=== PATIENT | female | born 1935 | race Caucasian/White ===

== ENCOUNTER 2017-08-26 12:34 | Emergency (ER) | payer MEDICARE, OTHER ==
[~2017-08-26] VITALS: Ht 165.1 cm; Wt 79.4 kg
[~2017-08-26 12:34] MED LIST: ACET325 PO; ALBU90OI INH; ASPI325; ASPI325 PO; ASPI81CH PO; BUDE6HFA; BUDE6HFA INH; BUPR150ER PO; BUPR150T2; CEPH500 PO; CHOL10002 PO; CODACE30; CONEST.625; CYCL10 PO; FENT25TP TOP; GABA300 PO; HYDACE5 PO; HYDR1TAB94 PO; IRON PO; Inderal40 MG; LACT10SY PO; LANS30EC; Lopressor 25 mg25 MG PO; META800 PO; METO50ER PO; MISO200; MYRBETRIQ25 MG PO; Mucinex600 MG PO; NAPR220 PO; NITR.4SL SL; NITR.6SL SL; Naprosyn500 MG PO; Norco 10-325 T1 EACH PO; Norco 5-325 Ta1 EACH PO; ONDA4 PO; OXYACE5T PO; OXYB5; OXYB5 PO; OXYC5 PO; PANT40 PO; PARO20 PO; PRAV20 PO; PREG75 PO; PROP60; Percocet 5-3251 EACH PO; Pravachol80 MG PO; Prednisone20 MG PO; RANO500T PO; ROPI.25 PO; RXHYD5325 PO; SERT100 PO; SOLI5 PO; SUCR1SU PO; SULTRISS PO; Verotin-Gr Cap1 EACH PO; Zithromax250 MG PO; Zofran Odt4 MG SL; [UNRECOGNIZED DRUG - OTHER] MC
[2017-08-26] MEDS ORDERED: TYLECOD3 PO (14:54)
== END 2017-08-26 15:40 | disposition home or self-care (01) ==
LOC: ER 12:34
DX: M25.561 Pain in right knee (principal); Z88.8 Allergy status to other drugs, medicaments and biological substances; Z87.891 Personal history of nicotine dependence; Z88.5 Allergy status to narcotic agent; Z79.899 Other long term (current) drug therapy; Z79.82 Long term (current) use of aspirin; J44.9 Chronic obstructive pulmonary disease, unspecified
CPT/HCPCS: 73564; 99283

== ENCOUNTER 2017-11-27 10:52 | Day surgery (SDC) | payer MEDICARE, OTHER ==
[~2017-11-27] VITALS: Ht 165.1 cm; Wt 79.5 kg
[~2017-11-27 10:52] MED LIST changes: +TYLECOD3 PO
[2017-11-28 04:30] LABS: BASOPHILS ABSOLUTE AUTO 0.04 K/mm3 (0.00-0.23); BASOPHILS PERCENT AUTO 0 % (0-2); EOSINOPHILS PERCENT AUTO 0 % (0-6); Hematocrit 33.7 % (33.0-51.0); IMMATURE GRAN ABSOLUTE AUTO 0.11 K/mm3 (0.00-0.10); IMMATURE GRAN PERCENT AUTO 1 % (0-1); LYMPHOCYTES ABSOLUTE AUTO 1.86 K/mm3 (0.84-5.20); LYMPHOCYTES PERCENT AUTO 11 % (21-46); MONOCYTES ABSOLUTE AUTO 1.11 K/mm3 (0.16-1.47); MONOCYTES PERCENT AUTO 7 % (4-13); Mean Corpuscular HGB 30.9 pg (26.0-34.0); Mean Corpuscular HGB Conc 32.6 g/dL (31.5-36.5); Mean Corpuscular Volume 95 fL (80-100); NEUTROPHILS ABSOLUTE AUTO 13.24 K/mm3 (1.96-9.15); NEUTROPHILS PERCENT AUTO 81 % (41-73); Platelet Count 232 K/mm3 (150-400); RDW Standard Deviation 45.1 fL (35.1-46.3); Red Blood Cell Count 3.56 M/mm3 (3.80-5.20); White Blood Cell Count 16.36 K/mm3 (4.00-11.30)
[2017-11-28 05:01] LABS: Anion Gap 8 mmol/L (6-16); Blood Urea Nitrogen 13 mg/dL (8-24); Bun/Creatinine Ratio 19.5 (12.0-20.0); CO2, Blood 29 mmol/L (21-32); Calcium, Blood 8.5 mg/dL (8.5-10.1); Chloride, Blood 103 mmol/L (98-108); Creatinine, Blood 0.67 mg/dL (0.40-1.00); Glomerular Filtration Rate >60 (60-); Glucose, Blood 133 mg/dL (70-99); Potassium, Blood 3.9 mmol/L (3.5-5.5); Sodium, Blood 140 mmol/L (136-145)
[2017-11-28] MEDS ORDERED: HYDR-86 PO (06:56)
[2017-11-28] MEDS ORDERED: PROM25 PO (06:56)
== END 2017-11-28 14:48 | disposition home or self-care (01) ==
LOC: ORSCMMR 10:52 → LAB 10:52 → ORSCMMR 10:53 → SURS 17:48 → ORSCMMR 11-28 14:48
PROVIDERS: Orthopaedic Surgery
PROC: 0SRC0J9 Replacement of Right Knee Joint with Synthetic Substitute, Cemented, Open Approach (ICD-10-PCS; principal; 2017-11-27 13:15)
PROC: 8E0YXBZ Computer Assisted Procedure of Lower Extremity (ICD-10-PCS; principal; 2017-11-27 13:15)
DX: M17.11 Unilateral primary osteoarthritis, right knee (principal); Z01.812 Encounter for preprocedural laboratory examination; Z01.818 Encounter for other preprocedural examination; I10 Essential (primary) hypertension; I50.9 Heart failure, unspecified; I25.10 Atherosclerotic heart disease of native coronary artery without angina pectoris; J44.9 Chronic obstructive pulmonary disease, unspecified; Z87.891 Personal history of nicotine dependence; Z79.899 Other long term (current) drug therapy
CPT/HCPCS: 36415; 73560-RT; 80048; 83735; 85025; 86850; 86900; 86901; 88300; 94640; 94760; 94762; 97110; 97116; 97161; 97530; C1713; C1776; G8978; G8979; G8980; J0171; J0690; J0735; J1100; J1885; J2250; J2370; J2405; J2765; J2795; J3010; J3370; J7120

== ENCOUNTER 2018-06-14 19:29 | Emergency (ER) | payer MEDICARE, BC ==
[~2018-06-14] VITALS: Ht 165.1 cm; Wt 79.4 kg
[~2018-06-14 19:29] MED LIST changes: +HYDR-86 PO; +PROM25 PO
[2018-06-14 20:19] LABS: BASOPHILS ABSOLUTE AUTO 0.09 K/mm3 (0.00-0.23); BASOPHILS PERCENT AUTO 1 % (0-2); EOSINOPHILS ABSOLUTE AUTO 0.23 K/mm3 (0.00-0.68); EOSINOPHILS PERCENT AUTO 2 % (0-6); Hematocrit 41.3 % (33.0-51.0); Hemoglobin 13.3 g/dL (11.5-16.0); IMMATURE GRAN ABSOLUTE AUTO 0.04 K/mm3 (0.00-0.10); IMMATURE GRAN PERCENT AUTO 0 % (0-1); LYMPHOCYTES ABSOLUTE AUTO 2.91 K/mm3 (0.84-5.20); LYMPHOCYTES PERCENT AUTO 30 % (21-46); MONOCYTES ABSOLUTE AUTO 0.79 K/mm3 (0.16-1.47); MONOCYTES PERCENT AUTO 8 % (4-13); Mean Corpuscular HGB 31.7 pg (26.0-34.0); Mean Corpuscular HGB Conc 32.2 g/dL (31.5-36.5); Mean Corpuscular Volume 98 fL (80-100); Mean Platelet Volume 11.5 fL (9.1-12.4); NEUTROPHILS ABSOLUTE AUTO 5.72 K/mm3 (1.96-9.15); NEUTROPHILS PERCENT AUTO 58 % (41-73); Platelet Count 249 K/mm3 (150-400); RDW Standard Deviation 46.6 fL (35.1-46.3); White Blood Cell Count 9.78 K/mm3 (4.00-11.30)
[2018-06-14 21:26] LABS: Alanine Aminotransfer (ALT/SGP 16 U/L (12-78); Albumin, Blood 3.5 g/dL (3.4-5.0); Albumin/Globulin Ratio 0.9 (0.8-1.8); Alk Phos 99 U/L (50-136); Anion Gap 4 mmol/L (6-16); Aspartate Aminotrans (AST/SGOT 20 U/L (12-37); Bilirubin, Total 0.5 mg/dL (0.1-1.0); Blood Urea Nitrogen 14 mg/dL (8-24); Bun/Creatinine Ratio 19.3 (12.0-20.0); CO2, Blood 34 mmol/L (21-32); Calcium, Blood 8.6 mg/dL (8.5-10.1); Chloride, Blood 103 mmol/L (98-108); Creatinine, Blood 0.73 mg/dL (0.40-1.00); Glomerular Filtration Rate >60 (60-); Glucose, Blood 86 mg/dL (70-99); Potassium, Blood 4.4 mmol/L (3.5-5.5); Sodium, Blood 141 mmol/L (136-145); Total Protein, Blood 7.5 g/dL (6.4-8.2)
== END 2018-06-15 00:10 | disposition home or self-care (01) ==
LOC: ER 19:29
PROVIDERS: Emergency Medicine
DX: R42 Dizziness and giddiness (principal); R51 Headache; I20.9 Angina pectoris, unspecified; J44.9 Chronic obstructive pulmonary disease, unspecified; Z88.5 Allergy status to narcotic agent; Z88.1 Allergy status to other antibiotic agents; Z88.6 Allergy status to analgesic agent; Z88.8 Allergy status to other drugs, medicaments and biological substances; Z79.82 Long term (current) use of aspirin; Z79.899 Other long term (current) drug therapy; Z98.51 Tubal ligation status; Z87.891 Personal history of nicotine dependence
CPT/HCPCS: 36415; 70450; 80053; 85025; 93005; 93010; 96361; 96374; 96375; 99284-25; J0780; J1885; J7120

== ENCOUNTER 2019-01-25 15:14 | Inpatient (IN) | payer MEDICARE, BC, OTHER ==
[~2019-01-25] VITALS: Ht 165.1 cm; Wt 85.3 kg
[2019-01-25 16:06] LABS: BASOPHILS ABSOLUTE AUTO 0.08 K/mm3 (0.00-0.23); BASOPHILS PERCENT AUTO 0 % (0-2); EOSINOPHILS ABSOLUTE AUTO 0.06 K/mm3 (0.00-0.68); EOSINOPHILS PERCENT AUTO 0 % (0-6); Hematocrit 39.9 % (33.0-51.0); Hemoglobin 12.9 g/dL (11.5-16.0); IMMATURE GRAN ABSOLUTE AUTO 0.14 K/mm3 (0.00-0.10); IMMATURE GRAN PERCENT AUTO 1 % (0-1); LYMPHOCYTES ABSOLUTE AUTO 2.59 K/mm3 (0.84-5.20); LYMPHOCYTES PERCENT AUTO 12 % (21-46); MONOCYTES ABSOLUTE AUTO 1.98 K/mm3 (0.16-1.47); MONOCYTES PERCENT AUTO 9 % (4-13); Mean Corpuscular HGB 31.1 pg (26.0-34.0); Mean Corpuscular HGB Conc 32.3 g/dL (31.5-36.5); Mean Corpuscular Volume 96 fL (80-100); Mean Platelet Volume 11.6 fL (9.1-12.4); NEUTROPHILS ABSOLUTE AUTO 16.32 K/mm3 (1.96-9.15); NEUTROPHILS PERCENT AUTO 77 % (41-73); Platelet Count 190 K/mm3 (150-400); RDW Coefficient Variation 13.6 % (11.7-14.2); RDW Standard Deviation 48.7 fL (35.1-46.3); Red Blood Cell Count 4.15 M/mm3 (3.80-5.20); White Blood Cell Count 21.17 K/mm3 (4.00-11.30)
[2019-01-25 16:28] LABS: Alanine Aminotransfer (ALT/SGP 20 U/L (12-78); Albumin, Blood 3.3 g/dL (3.4-5.0); Albumin/Globulin Ratio 0.8 (0.8-1.8); Alk Phos 77 U/L (50-136); Anion Gap 5 mmol/L (6-16); Aspartate Aminotrans (AST/SGOT 24 U/L (12-37); Bilirubin, Total 0.6 mg/dL (0.1-1.0); Blood Urea Nitrogen 12 mg/dL (8-24); Bun/Creatinine Ratio 17.2 (12.0-20.0); CO2, Blood 28 mmol/L (21-32); Calcium, Blood 8.7 mg/dL (8.5-10.1); Chloride, Blood 101 mmol/L (98-108); Glomerular Filtration Rate >60 (60-); Glucose, Blood 107 mg/dL (70-99); Sodium, Blood 134 mmol/L (136-145); Total Protein, Blood 7.3 g/dL (6.4-8.2)
[2019-01-25] MEDS ORDERED: AZIT250 PO (16:49)
--- NOTE | 2019-01-26 03:53 | NUR ---
SHIFT SUMMARY PT ADMITTED FOR PNEUMONIA. FULL CODE. 2 GRAM LOW SODIUM DIET. CONT PULSE OX AND C-PAP IN PLACE. LOVENOX FOR DVT PROPHYLAXIS. LR RUNNING AT 75 MLS/HR. 1 PERSON SBA WITH TRANSFERS. TAKES MEDICATIONS WHOLE. 20 G IV TO R AC. PT STATES THAT SHE IS ONLY HERE TO GET STRONGER TO ENSURE THAT PT DOES NOT GO HOME AND HAVE ANOTHER FALL. PT STATES SHE HAS HAD TWO FALLS, ONE OF WHICH SERIOUSLY INJURED PTS SHOULDER. PT STATED THAT SHE THINKS SHE WILL BE ABLE TO GO HOME TODAY AND STATES THAT SHE IS NOT FEELING BADLY. HOWEVER, PTS FAMILY REPORTED THAT PT DID HAVE SOME SIGNIFICAT CONFUSION AND AMS. NONE SO FAR THIS SHIFT. PT IS ALERT, ORIENTED, PLEASENT AND COOPERATIVE WITH CARE. HAS APPEARS TO SLEEP COMFORTABLY MOST OF THE NIGHT WITH NO APPARENT SIGNS OF ACUTE DISTRESS. ABLE TO MAKE NEEDS KNOWN, USES CALL LIGHT APPROPRIATELY, AND CALL LIGHT IN REACH. BED ALARM FOR SAFETY.
[2019-01-26 04:41] LABS: BASOPHILS ABSOLUTE AUTO 0.07 K/mm3 (0.00-0.23); BASOPHILS PERCENT AUTO 0 % (0-2); EOSINOPHILS ABSOLUTE AUTO 0.23 K/mm3 (0.00-0.68); EOSINOPHILS PERCENT AUTO 1 % (0-6); Hematocrit 36.9 % (33.0-51.0); IMMATURE GRAN ABSOLUTE AUTO 0.12 K/mm3 (0.00-0.10); IMMATURE GRAN PERCENT AUTO 1 % (0-1); LYMPHOCYTES ABSOLUTE AUTO 2.36 K/mm3 (0.84-5.20); LYMPHOCYTES PERCENT AUTO 13 % (21-46); MONOCYTES ABSOLUTE AUTO 1.59 K/mm3 (0.16-1.47); MONOCYTES PERCENT AUTO 9 % (4-13); Mean Corpuscular HGB Conc 32.5 g/dL (31.5-36.5); Mean Corpuscular Volume 95 fL (80-100); Mean Platelet Volume 11.1 fL (9.1-12.4); NEUTROPHILS ABSOLUTE AUTO 13.59 K/mm3 (1.96-9.15); NEUTROPHILS PERCENT AUTO 76 % (41-73); Platelet Count 166 K/mm3 (150-400); RDW Coefficient Variation 13.9 % (11.7-14.2); RDW Standard Deviation 48.7 fL (35.1-46.3); Red Blood Cell Count 3.87 M/mm3 (3.80-5.20); White Blood Cell Count 17.96 K/mm3 (4.00-11.30)
[2019-01-26 05:00] LABS: Anion Gap 7 mmol/L (6-16); Blood Urea Nitrogen 13 mg/dL (8-24); Bun/Creatinine Ratio 20.7 (12.0-20.0); CO2, Blood 29 mmol/L (21-32); Calcium, Blood 8.5 mg/dL (8.5-10.1); Chloride, Blood 107 mmol/L (98-108); Creatinine, Blood 0.63 mg/dL (0.40-1.00); Glomerular Filtration Rate >60 (60-); Glucose, Blood 115 mg/dL (70-99); Potassium, Blood 3.5 mmol/L (3.5-5.5); Sodium, Blood 143 mmol/L (136-145)
--- NOTE | 2019-01-26 18:47 | NUR ---
SHIFT SUMMARY. A&OX3, SBA TO BATHROOM, AWARE OF LIMITATIONS AND CALLS APPROPRIATLY. PT DENIES SOB, ALTHOUGHT REPORTS PRODUCTIVE COUGH AND R SCAPULA/RIB PAIN WITH COUGHING, PT REPORTS RELIEF WITH ROBITUSSIN WITH CODEINE. HEATING PAD GIVEN TO BACK FOR PAIN MANAGEMENT. NO N/V, FAIR MEAL INTAKE.
--- NOTE | 2019-01-26 21:01 | NUR ---
DR SORTO called at PTN request for PRN rx for headache 10/27 for which she tales aleve 1 PO BID PRN at home or [place] 7.5/ 325 mg tab one. Order for naproxyn 250 mg po BID PRN obtained. PT says she is not allergic to codeine but is allergic to percocet. PT has hacking productive cough and had robitussin with codeine at 1805 with minimal effect.
--- NOTE | 2019-01-27 18:41 | NUR ---
SHIFT SUMMARY PT COUGHING TODAY AND BY THIS EVENING REPORTING BACK PAIN FROM COUGHING. ROBITUSSION BEING GIVEN Q4H WELL. UP TO BATHROOM 1 PERSON TO INDEPENDENTLY. HAS BEEN TALKING IN HER SLEEP AND SNORING THIS AFTERNOON BUT REPORTS FEELING VERY TIRED AND UNRESTED. ON ROOM AIR WITH NO INCREASE IN SOB WITH ACTIVITY.
--- NOTE | 2019-01-27 23:59 | NUR ---
PT has been on antibiotics for rt upper lobe pneumonia. on room air not using hospital cpap asked family to bring own cpap. 02 sats greater than 90% room air. She has headache and she has kpad for rib pain caused by coughing. Up with assist to bathroom urine mark, continues on IV fluids at 75 ml hour.
[2019-01-28 04:50] LABS: BASOPHILS ABSOLUTE AUTO 0.05 K/mm3 (0.00-0.23); BASOPHILS PERCENT AUTO 1 % (0-2); EOSINOPHILS ABSOLUTE AUTO 0.33 K/mm3 (0.00-0.68); EOSINOPHILS PERCENT AUTO 3 % (0-6); Hematocrit 33.5 % (33.0-51.0); Hemoglobin 10.8 g/dL (11.5-16.0); IMMATURE GRAN ABSOLUTE AUTO 0.16 K/mm3 (0.00-0.10); IMMATURE GRAN PERCENT AUTO 2 % (0-1); LYMPHOCYTES ABSOLUTE AUTO 2.28 K/mm3 (0.84-5.20); LYMPHOCYTES PERCENT AUTO 22 % (21-46); MONOCYTES ABSOLUTE AUTO 1.04 K/mm3 (0.16-1.47); MONOCYTES PERCENT AUTO 10 % (4-13); Mean Corpuscular HGB Conc 32.2 g/dL (31.5-36.5); Mean Corpuscular Volume 96 fL (80-100); Mean Platelet Volume 11.3 fL (9.1-12.4); NEUTROPHILS ABSOLUTE AUTO 6.68 K/mm3 (1.96-9.15); NEUTROPHILS PERCENT AUTO 63 % (41-73); Platelet Count 193 K/mm3 (150-400); RDW Coefficient Variation 13.9 % (11.7-14.2); RDW Standard Deviation 49.1 fL (35.1-46.3); Red Blood Cell Count 3.48 M/mm3 (3.80-5.20); White Blood Cell Count 10.54 K/mm3 (4.00-11.30)
[2019-01-28 05:11] LABS: Albumin, Blood 2.8 g/dL (3.4-5.0); Anion Gap 7 mmol/L (6-16); Blood Urea Nitrogen 12 mg/dL (8-24); Bun/Creatinine Ratio 19.4 (12.0-20.0); CO2, Blood 28 mmol/L (21-32); Calcium, Blood 8.5 mg/dL (8.5-10.1); Chloride, Blood 102 mmol/L (98-108); Creatinine, Blood 0.62 mg/dL (0.40-1.00); Glomerular Filtration Rate >60 (60-); Glucose, Blood 109 mg/dL (70-99); Phosphorus, Blood 4.1 mg/dL (2.5-4.9); Potassium, Blood 3.9 mmol/L (3.5-5.5); Sodium, Blood 137 mmol/L (136-145)
[2019-01-28] MEDS ORDERED: CODEINE-GUAIFE120 ML PO (11:56)
[2019-01-28] MEDS ORDERED: CEFU500T30 PO (11:59)
--- NOTE | 2019-01-28 14:30 | NUR ---
DISCHARGE INSTRUCTIONS COMPLETED AND DISCUSSED WITH PT EXPRESSING UNDERSTANDING. SCRIPTS FAXED TO [facility]. FAMILY HERE TO PICK PT UP. TO [facility] VIA W/C.
== END 2019-01-28 14:00 | disposition home or self-care (01) | DRG 194 ==
LOC: ER 15:14 → MEDS 20:24 → ENPENDDIS 01-28 09:48 → MEDS 01-28 14:00
PROVIDERS: Emergency Medicine; Family Medicine; ADMIT Internal Medicine
DX: J18.1 Lobar pneumonia, unspecified organism (principal); R65.10 Systemic inflammatory response syndrome (SIRS) of non-infectious origin without acute organ dysfunction; J44.1 Chronic obstructive pulmonary disease with (acute) exacerbation; E44.1 Mild protein-calorie malnutrition; I25.10 Atherosclerotic heart disease of native coronary artery without angina pectoris; Z90.3 Acquired absence of stomach [part of]; Z87.891 Personal history of nicotine dependence; R32 Unspecified urinary incontinence; E78.5 Hyperlipidemia, unspecified; Z98.0 Intestinal bypass and anastomosis status; E86.0 Dehydration
CPT/HCPCS: 36415; 71046; 80048; 80053; 80069; 85025; 93005; 93010; 94640; 94660; 94762; 96361; 96365; 96367; 99285-25; J0456; J0696; J1650; J7050; J7120

== ENCOUNTER 2020-05-19 17:13 | Emergency (ER) | payer MEDICARE, BC ==
[~2020-05-19] VITALS: Ht 165.1 cm; Wt 83.9 kg
[~2020-05-19 17:13] MED LIST changes: +AZIT250 PO; +CEFU500T30 PO; +CODEINE-GUAIFE120 ML PO
[2020-05-19] MEDS ORDERED: HYDR1TAB94 PO (19:32)
[2020-05-19] MEDS ORDERED: Robaxin750 MG PO (19:32)
== END 2020-05-19 19:47 | disposition home or self-care (01) ==
LOC: ER 17:13
DX: S16.1XXA Strain of muscle, fascia and tendon at neck level, initial encounter (principal); S29.012A Strain of muscle and tendon of back wall of thorax, initial encounter; S39.012A Strain of muscle, fascia and tendon of lower back, initial encounter; S09.90XA Unspecified injury of head, initial encounter; J44.9 Chronic obstructive pulmonary disease, unspecified; I10 Essential (primary) hypertension; Z79.899 Other long term (current) drug therapy; Z79.51 Long term (current) use of inhaled steroids; Z88.1 Allergy status to other antibiotic agents; Z88.5 Allergy status to narcotic agent; Z88.8 Allergy status to other drugs, medicaments and biological substances; Z95.5 Presence of coronary angioplasty implant and graft; Z87.891 Personal history of nicotine dependence; V49.50XA Passenger injured in collision with unspecified motor vehicles in traffic accident, initial encounter; Y92.410 Unspecified street and highway as the place of occurrence of the external cause
CPT/HCPCS: 70450; 72070; 72100; 72125; J1885; J2405; J3010

== ENCOUNTER → 2020-08-04 | Outpatient (CLI) | payer BC, MEDICARE ==
[~2020-08-04] MED LIST changes: +Robaxin750 MG PO
== END | disposition home or self-care (01) ==
LOC: LAB SHORT 14:54 → PLD 14:54
DX: L57.0 Actinic keratosis (principal)
CPT/HCPCS: 88305

== ENCOUNTER 2021-05-20 11:40 | Emergency (ER) | payer MEDICARE, BC ==
[~2021-05-20] VITALS: Ht 165.1 cm; Wt 81.7 kg
[2021-05-20] MEDS ORDERED: Norco 5-325 Ta1 EACH PO (13:55)
== END 2021-05-20 14:03 | disposition home or self-care (01) ==
LOC: ER 11:40
DX: S70.12XA Contusion of left thigh, initial encounter (principal); J44.9 Chronic obstructive pulmonary disease, unspecified; I10 Essential (primary) hypertension; G47.33 Obstructive sleep apnea (adult) (pediatric); Z88.1 Allergy status to other antibiotic agents; Z88.5 Allergy status to narcotic agent; Z88.8 Allergy status to other drugs, medicaments and biological substances; Z79.899 Other long term (current) drug therapy; Z87.891 Personal history of nicotine dependence; W18.30XA Fall on same level, unspecified, initial encounter
CPT/HCPCS: 73502; 73552; 99283-25; A9270

== ENCOUNTER 2022-10-14 22:41 | Emergency (ER) | payer MEDICARE, BC ==
[~2022-10-14] VITALS: Ht 165.1 cm; Wt 72.6 kg
[2022-10-14 22:55] VITALS: BP 146/63
[2022-10-15] MEDS ORDERED: HYDR1TAB94 PO (00:26)
== END 2022-10-15 00:49 | disposition home or self-care (01) ==
LOC: ER 22:41
DX: S09.90XA Unspecified injury of head, initial encounter (principal); S22.42XA Multiple fractures of ribs, left side, initial encounter for closed fracture; W10.8XXA Fall (on) (from) other stairs and steps, initial encounter; Z88.1 Allergy status to other antibiotic agents; Z88.8 Allergy status to other drugs, medicaments and biological substances; Z88.5 Allergy status to narcotic agent; Z79.899 Other long term (current) drug therapy; J44.9 Chronic obstructive pulmonary disease, unspecified; I10 Essential (primary) hypertension; G47.33 Obstructive sleep apnea (adult) (pediatric); Z87.891 Personal history of nicotine dependence
CPT/HCPCS: 70450; 73010; 73030; A9270

== ENCOUNTER 2022-12-04 21:51 | Emergency (ER) | payer MEDICARE, BC ==
[~2022-12-04] VITALS: Ht 165.1 cm; Wt 69.0 kg
[2022-12-04 21:56] VITALS: BP 178/77
[2022-12-04 22:37] LABS: BASOPHILS ABSOLUTE AUTO 0.13 K/mm3 (0.00-0.23); BASOPHILS PERCENT AUTO 1 % (0-2); EOSINOPHILS ABSOLUTE AUTO 0.39 K/mm3 (0.00-0.68); EOSINOPHILS PERCENT AUTO 4 % (0-6); Hematocrit 38.8 % (33.0-51.0); Hemoglobin 12.8 g/dL (11.5-16.0); IMMATURE GRAN ABSOLUTE AUTO 0.03 K/mm3 (0.00-0.10); IMMATURE GRAN PERCENT AUTO 0 % (0-1); LYMPHOCYTES ABSOLUTE AUTO 3.31 K/mm3 (0.84-5.20); LYMPHOCYTES PERCENT AUTO 33 % (21-46); MONOCYTES PERCENT AUTO 8 % (4-13); Mean Corpuscular Volume 94 fL (80-100); Mean Platelet Volume 12.2 fL (9.1-12.4); NEUTROPHILS ABSOLUTE AUTO 5.35 K/mm3 (1.96-9.15); NEUTROPHILS PERCENT AUTO 53 % (41-73); Platelet Count 205 K/mm3 (150-400); RDW Coefficient Variation 13.5 % (11.7-14.2); RDW Standard Deviation 46.8 fL (35.1-46.3); Red Blood Cell Count 4.13 M/mm3 (3.80-5.20); White Blood Cell Count 10.01 K/mm3 (4.00-11.30)
[2022-12-04 22:59] LABS: Albumin/Globulin Ratio 0.8 (0.8-1.8); Bilirubin, Total 0.4 mg/dL (0.1-1.0); Bun/Creatinine Ratio 13.3 (12.0-20.0); Calcium, Blood 8.7 mg/dL (8.5-10.1); Creatinine, Blood 0.83 mg/dL (0.40-1.00); Potassium, Blood 3.6 mmol/L (3.5-5.5)
== END 2022-12-05 01:53 | disposition home or self-care (01) ==
LOC: ER 21:51
PROVIDERS: Emergency Medicine
DX: R07.9 Chest pain, unspecified (principal); Z88.1 Allergy status to other antibiotic agents; Z88.8 Allergy status to other drugs, medicaments and biological substances; Z88.5 Allergy status to narcotic agent; Z79.899 Other long term (current) drug therapy; Z87.891 Personal history of nicotine dependence; J44.9 Chronic obstructive pulmonary disease, unspecified; I10 Essential (primary) hypertension; G47.33 Obstructive sleep apnea (adult) (pediatric)
CPT/HCPCS: 71045; 80053; 83880; 84484; 85025; 93005; 93010; 99285-25

== ENCOUNTER 2023-01-11 17:09 | Inpatient (IN) | payer MEDICARE, BC ==
[~2023-01-11] VITALS: Ht 165.1 cm; Wt 46.8 kg
[2023-01-11 18:09] LABS: BASOPHILS ABSOLUTE AUTO 0.05 K/mm3 (0.00-0.23); BASOPHILS PERCENT AUTO 1 % (0-2); EOSINOPHILS ABSOLUTE AUTO 0.06 K/mm3 (0.00-0.68); EOSINOPHILS PERCENT AUTO 1 % (0-6); Hematocrit 38.7 % (33.0-51.0); Hemoglobin 12.6 g/dL (11.5-16.0); IMMATURE GRAN ABSOLUTE AUTO 0.03 K/mm3 (0.00-0.10); IMMATURE GRAN PERCENT AUTO 0 % (0-1); LYMPHOCYTES ABSOLUTE AUTO 0.83 K/mm3 (0.84-5.20); LYMPHOCYTES PERCENT AUTO 8 % (21-46); MONOCYTES ABSOLUTE AUTO 1.33 K/mm3 (0.16-1.47); MONOCYTES PERCENT AUTO 12 % (4-13); Mean Corpuscular HGB Conc 32.6 g/dL (31.5-36.5); Mean Corpuscular Volume 95 fL (80-100); Mean Platelet Volume 12.8 fL (9.1-12.4); NEUTROPHILS ABSOLUTE AUTO 8.67 K/mm3 (1.96-9.15); NEUTROPHILS PERCENT AUTO 79 % (41-73); Platelet Count 175 K/mm3 (150-400); RDW Coefficient Variation 14.6 % (11.7-14.2); RDW Standard Deviation 51.4 fL (35.1-46.3); Red Blood Cell Count 4.07 M/mm3 (3.80-5.20); White Blood Cell Count 10.97 K/mm3 (4.00-11.30)
[2023-01-11 18:29] LABS: Alanine Aminotransfer (ALT/SGP 245 U/L (12-78); Albumin, Blood 2.9 g/dL (3.4-5.0); Albumin/Globulin Ratio 0.7 (0.8-1.8); Alk Phos 660 U/L (50-136); Anion Gap 4 mmol/L (6-16); Aspartate Aminotrans (AST/SGOT 255 U/L (12-37); Bilirubin, Total 2.6 mg/dL (0.1-1.0); Blood Urea Nitrogen 12 mg/dL (8-24); Bun/Creatinine Ratio 16.4 (12.0-20.0); CO2, Blood 29 mmol/L (21-32); Calcium, Blood 8.9 mg/dL (8.5-10.1); Chloride, Blood 106 mmol/L (98-108); Creatinine, Blood 0.73 mg/dL (0.40-1.00); Ethanol (Alcohol), Blood, Med <3 mg/dL; Globulin, Blood 4.1 g/dL (2.2-4.0); Glomerular Filtration Rate 81 (60-); Glucose, Blood 128 mg/dL (70-99); Potassium, Blood 4.3 mmol/L (3.5-5.5); Sodium, Blood 139 mmol/L (136-145)
[2023-01-11 22:56] LABS: Source, Urine Clean Catch
[2023-01-11 22:59] LABS: Bilirubin, Urine Neg (Neg); Blood, Urine 1+ (Neg); Glucose Qualitative, Urine Neg (Neg); Ketones, Urine Neg (Neg); Leukocyte Esterase, Urine 1+ (Neg); Nitrite, Urine Neg (Neg); Protein, Urine Neg (Neg); Specific Gravity, Urine 1.015 (1.003-1.022); Urobilinogen, Urine 2+ (Normal)
[2023-01-11 23:12] LABS: U Amphetamine Screen Not Detected; U Barbituate Screen Not Detected; U Benzodiazapine Screen Not Detected; U Buprenorphine Screen Not Detected; U Cannabinoids Screen Not Detected; U Cocaine Screen Not Detected; U Methadone Screen Not Detected; U Methamphetamine Screen Not Detected; U Opiates Screen Not Detected; U Oxycodone Screen Not Detected; U Phencyclidine Screen Not Detected; U Propoxyphene Screen Not Detected
[2023-01-11 23:17] LABS: Appearance, Urine Clear (Clear); Color, Urine Amber (P-Yellow)
[2023-01-11 23:18] LABS: Bacteria Not Seen /hpf; Red Blood Cells, Urine 0-2 /hpf (0-2); Squamous Epithelial Cells Rare /hpf (Few); White Blood Cells, Urine 0-2 /hpf (0-5)
[2023-01-12 00:28] LABS: Influenza A, PCR NEGATIVE (NEGATIVE); Influenza B, PCR NEGATIVE (NEGATIVE); Resp Syncytial Virus, PCR NEGATIVE (NEGATIVE); SARS-Cov-2 (COVID-19) PCR, MMC NEGATIVE (NEGATIVE)
[2023-01-12 02:11] VITALS: BP 150/68
[2023-01-12 05:54] LABS: BASOPHILS ABSOLUTE AUTO 0.07 K/mm3 (0.00-0.23); BASOPHILS PERCENT AUTO 1 % (0-2); EOSINOPHILS ABSOLUTE AUTO 0.03 K/mm3 (0.00-0.68); EOSINOPHILS PERCENT AUTO 0 % (0-6); Hematocrit 34.1 % (33.0-51.0); IMMATURE GRAN ABSOLUTE AUTO 0.04 K/mm3 (0.00-0.10); IMMATURE GRAN PERCENT AUTO 0 % (0-1); LYMPHOCYTES ABSOLUTE AUTO 1.52 K/mm3 (0.84-5.20); LYMPHOCYTES PERCENT AUTO 11 % (21-46); MONOCYTES ABSOLUTE AUTO 2.11 K/mm3 (0.16-1.47); MONOCYTES PERCENT AUTO 16 % (4-13); Mean Corpuscular HGB 30.9 pg (26.0-34.0); Mean Corpuscular HGB Conc 32.3 g/dL (31.5-36.5); Mean Corpuscular Volume 96 fL (80-100); NEUTROPHILS ABSOLUTE AUTO 9.63 K/mm3 (1.96-9.15); NEUTROPHILS PERCENT AUTO 72 % (41-73); Platelet Count 159 K/mm3 (150-400); RDW Coefficient Variation 15.1 % (11.7-14.2); RDW Standard Deviation 53.5 fL (35.1-46.3); Red Blood Cell Count 3.56 M/mm3 (3.80-5.20)
[2023-01-12 05:57] LABS: Mean Platelet Volume 13.4 fL (9.1-12.4)
[2023-01-12 06:12] LABS: Albumin, Blood 2.4 g/dL (3.4-5.0); Albumin/Globulin Ratio 0.7 (0.8-1.8); Bilirubin, Total 3.6 mg/dL (0.1-1.0); Bun/Creatinine Ratio 15.6 (12.0-20.0); Calcium, Blood 8.1 mg/dL (8.5-10.1); Creatinine, Blood 0.64 mg/dL (0.40-1.00); Globulin, Blood 3.6 g/dL (2.2-4.0); Potassium, Blood 3.7 mmol/L (3.5-5.5)
--- NOTE | 2023-01-12 07:17 | NUR ---
SHIFT SUMMARY/ADMISSION NOTE PATIENT ARRIVED TO UNIT FROM ED AT 01:50. ORIENTED TO UNIT, ROOM AND CALL LIGHT USE. PATIENT IS A/Ox3, PLEASANT AND COOPERATIVE. DENIES PAIN NOR DISCOMFORT. APPEARES IN NO ACUTE DISTRESS, RESTING COMFORTABLY AT THIS TIME. REQUIRES 1 ASSIST TO BSC, LG WELL FORMED BM AT SHIFT CHANGE. PUREWICK IN PLACE FOR OCCATIONAL INCONTINENCE. BED IN LOW POSITION, CALL LIGHT WITHIN REACH.
[2023-01-12 07:33] VITALS: BP 138/57
[2023-01-12 16:01] VITALS: BP 154/65
--- NOTE | 2023-01-12 17:43 | NUR ---
SHIFT SUMMARY A&O X 4. VSS. PLEASANT & COOPERATIVE WITH ALL CARE. DENIES N/V/DIARRHEA & PAIN. PT HAD NORMAL FORMED BM TODAY. IS STDBY ASSIST FOR RESTROOM USE. CALLS FOR ASSISTANCE APPROPRIATELY. IS ON 2 L'S O2 WITH SATS >90%. IS NPO. HAD ABD MRI THIS AFTERNOON, REPORT ON CHART. AWAITING BED AT [facility] IN [place]. HEALTH SERVICE COORDINATOR IN [place] AT [facility] IS [facility] [phone].
[2023-01-12 19:35] VITALS: BP 141/82
[2023-01-13 01:25] VITALS: BP 125/77
--- NOTE | 2023-01-13 04:57 | NUR ---
SHIFT SUMMARY PATIENT A/Ox4, PLEASANT AFFECT. DENIED PAIN/DISCOMFORT AT BEGINING OF SHIFT. AT HS, C/O NAUSEA AND RADIATING SHARP PAIN TO RIGHT SHOULD AND CENTRAL, LOWER ABD. PROVIDER NOTIFIED, RECIEVED NEW PRN ORDER FOR MORPHINE, TOLERATED WELL. STATED NAUSEA RESOLVED AND PAIN RELIEF ACHIEVED. ABOUT 12AM PATIENT'S HR WAS TACHY 100s, PATIENT DENIED CHEST PAIN NOR TIGHTNESS, DENIED FEELING SOB. OBTAINED EKG, PROVIDER NOTIFIED OF ABNORMAL RESULTS, RECEIVED NEW ORDER FOR NOW DOSE OF METOPROLOL, AND TO START TELEMETRY MONITORING, AFIB 80s. PATIENT TO RESUME HOME DOSE OF PO METOPROLOL 25MG BID. PATIENT RESTING IN BED AT THIS TIME IN NO DISTRESS. BED IN LOW POSITION, CALL LIGHT WITHIN REACH.
[2023-01-13 05:05] LABS: BASOPHILS ABSOLUTE AUTO 0.04 K/mm3 (0.00-0.23); BASOPHILS PERCENT AUTO 0 % (0-2); EOSINOPHILS ABSOLUTE AUTO 0.01 K/mm3 (0.00-0.68); EOSINOPHILS PERCENT AUTO 0 % (0-6); Hematocrit 35.5 % (33.0-51.0); Hemoglobin 11.2 g/dL (11.5-16.0); IMMATURE GRAN ABSOLUTE AUTO 0.06 K/mm3 (0.00-0.10); IMMATURE GRAN PERCENT AUTO 1 % (0-1); LYMPHOCYTES ABSOLUTE AUTO 1.36 K/mm3 (0.84-5.20); LYMPHOCYTES PERCENT AUTO 10 % (21-46); MONOCYTES PERCENT AUTO 13 % (4-13); Mean Corpuscular HGB 30.2 pg (26.0-34.0); Mean Corpuscular HGB Conc 31.5 g/dL (31.5-36.5); Mean Corpuscular Volume 96 fL (80-100); Mean Platelet Volume 12.9 fL (9.1-12.4); NEUTROPHILS ABSOLUTE AUTO 10.09 K/mm3 (1.96-9.15); NEUTROPHILS PERCENT AUTO 76 % (41-73); Platelet Count 151 K/mm3 (150-400); Red Blood Cell Count 3.71 M/mm3 (3.80-5.20); White Blood Cell Count 13.26 K/mm3 (4.00-11.30)
[2023-01-13 05:22] VITALS: BP 150/87
[2023-01-13 05:36] LABS: Albumin, Blood 2.2 g/dL (3.4-5.0); Albumin/Globulin Ratio 0.6 (0.8-1.8); Bilirubin, Total 5.5 mg/dL (0.1-1.0); Bun/Creatinine Ratio 19.9 (12.0-20.0); Calcium, Blood 8.2 mg/dL (8.5-10.1); Creatinine, Blood 0.55 mg/dL (0.40-1.00); Globulin, Blood 3.7 g/dL (2.2-4.0); Potassium, Blood 3.4 mmol/L (3.5-5.5); Total Protein, Blood 5.9 g/dL (6.4-8.2)
[2023-01-13 05:57] VITALS: BP 187/101
[2023-01-13 07:36] VITALS: BP 169/76
[2023-01-13 09:41] VITALS: BP 169/76
--- NOTE | 2023-01-13 10:01 | NUR ---
transfer to [facility] a bed has been made available for pt to transfer to [facility] in [place] today. md to done, orders for transfer received. pt signed consent to go, g-dtr notified, made aware & is agreeable to transfer. just awaiting transport time. pt going to [facility] bed [id number].
--- NOTE | 2023-01-13 11:50 | NUR ---
PT TRANSFERRED TO [facility] VIA [facility]. REPORT CALLED TO SARAHI NEGRETE RN. PT TO GO TO BED #[id number]. 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 DIRTY CLOTHES SENT HOME WITH SARA TAYLOR. REPORT GIVEN TO TRANSPORT PERSONNEL WELL. [facility] PKT SENT WITH TRANSPORT PERSONNEL.
== END 2023-01-13 11:46 | disposition short-term general hospital (02) | DRG 444 ==
LOC: ER 17:09 → MEDS 01-12 00:49
PROVIDERS: Emergency Medicine; Hospitalist; ADMIT Student in an Organized Health Care Education/Training Program
DX: K80.70 Calculus of gallbladder and bile duct without cholecystitis without obstruction (principal); G92.8 Other toxic encephalopathy; J44.9 Chronic obstructive pulmonary disease, unspecified; I10 Essential (primary) hypertension; M79.7 Fibromyalgia; F32.A Depression, unspecified; Z20.822 Contact with and (suspected) exposure to COVID-19; G47.33 Obstructive sleep apnea (adult) (pediatric); I25.10 Atherosclerotic heart disease of native coronary artery without angina pectoris; I35.0 Nonrheumatic aortic (valve) stenosis; R32 Unspecified urinary incontinence; G25.81 Restless legs syndrome; Z95.5 Presence of coronary angioplasty implant and graft; Z88.5 Allergy status to narcotic agent; Z88.1 Allergy status to other antibiotic agents; Z88.8 Allergy status to other drugs, medicaments and biological substances; Z79.899 Other long term (current) drug therapy; Z79.891 Long term (current) use of opiate analgesic; Z90.3 Acquired absence of stomach [part of]; Z98.51 Tubal ligation status; Z90.49 Acquired absence of other specified parts of digestive tract; Z90.89 Acquired absence of other organs; Z90.710 Acquired absence of both cervix and uterus; Z90.722 Acquired absence of ovaries, bilateral; Z98.890 Other specified postprocedural states; Z87.891 Personal history of nicotine dependence
CPT/HCPCS: 0241U; 36415; 71046; 71260; 74181; 76705; 80053; 81001; 82947; 83605; 83690; 83735; 83880; 85025; 93005; 93010; 94762; 96361; 96365-59; 96366-59; 99285-25; A9270; G0480; J0295; J1644; J1650; J2270; J2405; J3010; J3480; J7030; J7120; Q9967